=== PATIENT | male | born 1985 | race Caucasian/White ===

== ENCOUNTER 2017-09-13 00:51 | Emergency (ER) | payer OTHER ==
[~2017-09-13] VITALS: Ht 172.7 cm; Wt 72.6 kg
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
[2017-09-13] MEDS ORDERED: LORAZEPAM INJ 2 MG/ML VIAL ONE (01:06)
[2017-09-13] MEDS ORDERED: HALOPERIDOL LACTATE INJ 5 MG/ML VIAL ONE (01:06)
--- NOTE | 2017-09-13 01:15 | NUR ---
[facility] AT BEDSIDE FOR REPORT
[2017-09-13] MEDS ORDERED: HALOPERIDOL LACTATE INJ 5 MG/ML VIAL IV ONE (01:30)
[2017-09-13] MEDS ORDERED: LORAZEPAM INJ 2 MG/ML VIAL IV ONE (01:30)
--- NOTE | 2017-09-13 01:35 | NUR ---
LAB AT BEDSIDE FOR BLOOD DRAW
[2017-09-13 01:49] LABS: BASOPHILS % (AUTO) 0.3 % (0.0-2.0); EOSINOPHILS # (AUTO) 0.3 /CMM (0.0-0.7); EOSINOPHILS % (AUTO) 4.6 % (0.0-6.0); HEMATOCRIT 42 % (39-51); HEMOGLOBIN 14.6 g/dL (13.5-17.5); LYMPHOCYTES # (AUTO) 1.5 /CMM (0.8-4.8); LYMPHOCYTES % (AUTO) 19.9 % (20.0-44.0); MEAN CORPUSCULAR HEMOGLOBIN 30 PG (26.0-33.0); MEAN CORPUSCULAR HGB CONC 35 g/dl (31.0-36.0); MEAN CORPUSCULAR VOLUME 85 fL (80-96); MONOCYTES # (AUTO) 0.5 /CMM (0.1-1.30); MONOCYTES % (AUTO) 6.4 % (2.0-12.0); NEUTROPHILS # (AUTO) 5.3 /CMM (1.8-8.9); NEUTROPHILS % (AUTO) 68.8 % (43.0-81.0); PLATELET COUNT (AUTO) 213 /CMM (150-450); RDW COEFFICIENT OF VARIATION 13.2 (11.5-15.0); RED BLOOD CELL COUNT(AUTO) 4.91 MIL/uL (4.5-6.0); WHITE BLOOD COUNT (AUTO) 7.7 K/uL (4.3-11.0)
--- NOTE | 2017-09-13 01:51 | NUR ---
Patient is resting comfortably in bed with eyes closed. Easily aroused. VSS
[2017-09-13 01:59] LABS: CALCIUM, SERUM 8.7 mg/dL (8.5-10.1); CARBON DIOXIDE 26 mmol/L (21-32); CHLORIDE 104 mmol/L (98-107); CREATININE 0.8 mg/dL (0.6-1.3); GLUCOSE 98 mg/dL (74-106); POTASSIUM 3.2 mmol/L (3.5-5.1); SODIUM SERUM 142 mmol/L (136-145); UREA NITROGEN, BLOOD 7 mg/dL (7-18)
[2017-09-13 02:06] LABS: ALANINE AMINOTRANSFERASE 40 U/L (12-78); ALBUMIN 4.2 g/dL (3.4-5.0); ALKALINE PHOSPHATASE 57 U/L (46-116); ASPARTATE AMINOTRANSFERASE 23 U/L (15-37); BILIRUBIN,DIRECT 0.1 mg/dL (0.0-0.2); BILIRUBIN,TOTAL 0.5 mg/dL (0.2-1.0); TOTAL PROTEIN, SERUM 7.6 g/dL (6.4-8.2)
[2017-09-13 02:07] LABS: ACETAMINOPHEN 0 ug/ml (10-30); ALCOHOL, BLOOD < 3 mg/dL (0-0); SALICYLATE 0.9 mg/dL (2.8-20.0)
[2017-09-13 02:13] LABS: THYROID STIMULATING HORMONE 3.324 uIU/mL (0.358-3.74)
--- NOTE | 2017-09-13 03:38 | NUR ---
VERBAL ORDERS PER DR. HERNANDEZ TO GIVE PT IV BOLUS 1 L NS NOW ONE TIME.
[2017-09-13] MEDS ORDERED: IV NS 0.9% 1,000 ML BAG IV ONE (04:00)
--- NOTE | 2017-09-13 06:57 | NUR ---
REPORT GIVEN TO HAMLET BADILLO FOR JAYY
[2017-09-13 09:08] VITALS: BP 109/71
== END 2017-09-13 09:09 | disposition home or self-care (01) ==
LOC: ER 00:53
DX: F15.129 Other stimulant abuse with intoxication, unspecified (principal); F19.10 Other psychoactive substance abuse, uncomplicated; F41.9 Anxiety disorder, unspecified; F20.9 Schizophrenia, unspecified
CPT/HCPCS: 36415; 80048-TC; 80076-TC; 82550-TC; 84443-TC; 85025-TC; A4606; G0480; J1630; J2060; J7030; Z7610

== ENCOUNTER 2017-09-22 23:35 | Emergency (ER) | payer OTHER ==
[~2017-09-22] VITALS: Ht 167.6 cm; Wt 81.6 kg
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
[2017-09-23] MEDS ORDERED: LORAZEPAM INJ 2 MG/ML VIAL ONE (01:09)
--- NOTE | 2017-09-23 01:10 | NUR ---
ART LES BEDSIDE FOR PSYCH EVAL.
--- NOTE | 2017-09-23 01:10 | NUR ---
PER MD MICHAEL, VERBAL ORDER GIVEN TO GIVE PT 2MG/ML OF ATIVAN IV.
--- NOTE | 2017-09-23 01:17 | NUR ---
[facility] [place] [phone]
[2017-09-23 01:20] LABS: BASOPHILS % (AUTO) 0.1 % (0.0-2.0); EOSINOPHILS # (AUTO) 0.2 /CMM (0.0-0.7); EOSINOPHILS % (AUTO) 0.8 % (0.0-6.0); HEMATOCRIT 47 % (39-51); HEMOGLOBIN 16.3 g/dL (13.5-17.5); LYMPHOCYTES # (AUTO) 1.5 /CMM (0.8-4.8); LYMPHOCYTES % (AUTO) 7.3 % (20.0-44.0); MEAN CORPUSCULAR HEMOGLOBIN 29 PG (26.0-33.0); MEAN CORPUSCULAR HGB CONC 35 g/dl (31.0-36.0); MEAN CORPUSCULAR VOLUME 85 fL (80-96); MONOCYTES # (AUTO) 0.9 /CMM (0.1-1.30); MONOCYTES % (AUTO) 4.4 % (2.0-12.0); NEUTROPHILS # (AUTO) 17.7 /CMM (1.8-8.9); NEUTROPHILS % (AUTO) 87.4 % (43.0-81.0); PLATELET COUNT (AUTO) 258 /CMM (150-450); RDW COEFFICIENT OF VARIATION 13.2 (11.5-15.0); RED BLOOD CELL COUNT(AUTO) 5.59 MIL/uL (4.5-6.0); WHITE BLOOD COUNT (AUTO) 20.3 K/uL (4.3-11.0)
[2017-09-23 01:36] LABS: CALCIUM, SERUM 10.6 mg/dL (8.5-10.1); CARBON DIOXIDE 27 mmol/L (21-32); CHLORIDE 102 mmol/L (98-107); CREATININE 1.1 mg/dL (0.6-1.3); GLUCOSE 80 mg/dL (74-106); POTASSIUM 3.6 mmol/L (3.5-5.1); SODIUM SERUM 142 mmol/L (136-145); UREA NITROGEN, BLOOD 13 mg/dL (7-18)
[2017-09-23 01:38] LABS: ACETAMINOPHEN 0 ug/ml (10-30); ALANINE AMINOTRANSFERASE 36 U/L (12-78); ALBUMIN 5.1 g/dL (3.4-5.0); ALCOHOL, BLOOD < 3 mg/dL (0-0); ALKALINE PHOSPHATASE 61 U/L (46-116); ASPARTATE AMINOTRANSFERASE 29 U/L (15-37); BILIRUBIN,DIRECT 0.2 mg/dL (0.0-0.2); BILIRUBIN,TOTAL 0.7 mg/dL (0.2-1.0); SALICYLATE 1.1 mg/dL (2.8-20.0); TOTAL PROTEIN, SERUM 9.2 g/dL (6.4-8.2)
[2017-09-23] MEDS ORDERED: LORAZEPAM INJ 2 MG/ML VIAL IV ONE (02:00)
--- NOTE | 2017-09-23 02:15 | NUR ---
Patient is resting comfortably in bed with eyes closed. Easily aroused. VSS
--- NOTE | 2017-09-23 03:00 | NUR ---
Patient is resting comfortably in bed with eyes closed. Easily aroused. VSS
--- NOTE | 2017-09-23 04:35 | NUR ---
Patient is resting comfortably in bed with eyes closed. Easily aroused. VSS
[2017-09-23 04:42] LABS: APPEARANCE,URINE CLEAR (CLEAR); BILIRUBIN,URINE NEGATIVE (NEGATIVE); BLOOD, URINE NEGATIVE Ery/uL (NEGATIVE); COLOR,URINE DARK YELLOW (YELLOW); KETONES,URINE 1+ (NEGATIVE); LEUKOCYTE ESTERASE ,URINE NEGATIVE (NEGATIVE); NITRITE, URINE NEGATIVE (NEGATIVE); PH,URINE 7.5 (5.0-8.0); PROTEIN,URINE TRACE mg/dl (NEGATIVE); UGLUCOSE NEGATIVE (NEGATIVE); UROBILINOGEN,URINE 0.2 EU/dL (0.2)
[2017-09-23 04:46] LABS: BACTERIA,URINE Few /HPF (None Seen); MUCUS,URINE Few /LPF (None Seen); RBC,URINE 0-2 /HPF (0-2); SQUAMOUS EPITHELIAL CELL,UR Few /HPF (None Seen); WBC,URINE 0-2 /HPF (0-3)
--- NOTE | 2017-09-23 06:05 | NUR ---
Patient is resting comfortably in bed with eyes closed. Easily aroused. VSS
--- NOTE | 2017-09-23 06:08 | NUR ---
CALLED PT'S MOTHER TO COME TEACHER DRAMA HER SON. MOTHER STATED HER ETA WOULD BE 20MINS
[2017-09-23 07:23] VITALS: BP 112/68
== END 2017-09-23 07:23 | disposition home or self-care (01) ==
LOC: ER 23:39
DX: T43.621A Poisoning by amphetamines, accidental (unintentional), initial encounter (principal); R41.0 Disorientation, unspecified; D72.829 Elevated white blood cell count, unspecified; F20.9 Schizophrenia, unspecified; F15.10 Other stimulant abuse, uncomplicated; F12.10 Cannabis abuse, uncomplicated; Y92.89 Other specified places as the place of occurrence of the external cause
CPT/HCPCS: 36415; 80048-TC; 80076-TC; 80305; 81000-TC; 85025-TC; A4606; G0480; J2060; Z7610

== ENCOUNTER 2020-10-21 05:02 | Emergency (ER) | payer MEDICAID, OTHER ==
[~2020-10-21] VITALS: Ht 167.6 cm; Wt 77.1 kg
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
[2020-10-21] MEDS ORDERED: TDAP [DIPH/PERTUSSIS/TET] 0.5 ML VIAL IM ONE ×2 (05:11→05:30)
--- NOTE | 2020-10-21 05:17 | NUR ---
PACKING AND FINAL ASSEMBLY SUPERVISOR AT BEDSIDE FOR BLOOD DRAW
--- NOTE | 2020-10-21 05:20 | NUR ---
COVID SWAB COLLECTED AND SENT TO LAB
[2020-10-21 05:46] LABS: BASOPHILS # (AUTO) 0.1 /CMM (0.0-0.2); BASOPHILS % (AUTO) 0.7 % (0.0-2.0); EOSINOPHILS % (AUTO) 4.1 % (0.0-6.0); HEMATOCRIT 43 % (39-51); HEMOGLOBIN 14.5 g/dL (13.5-17.5); LYMPHOCYTES # (AUTO) 1.3 /CMM (0.8-4.8); LYMPHOCYTES % (AUTO) 14.5 % (20.0-44.0); MEAN CORPUSCULAR HGB CONC 34 g/dl (31.0-36.0); MEAN CORPUSCULAR VOLUME 85 fL (80-96); MONOCYTES # (AUTO) 0.5 /CMM (0.1-1.30); MONOCYTES % (AUTO) 5.3 % (2.0-12.0); NEUTROPHILS # (AUTO) 6.6 /CMM (1.8-8.9); NEUTROPHILS % (AUTO) 75.4 % (43.0-81.0); PLATELET COUNT (AUTO) 274 /CMM (150-450); RED BLOOD CELL COUNT(AUTO) 5.06 MIL/uL (4.5-6.0); WHITE BLOOD COUNT (AUTO) 8.8 K/uL (4.3-11.0)
[2020-10-21 05:50] LABS: BILIRUBIN,URINE NEGATIVE (NEGATIVE); COLOR,URINE YELLOW (YELLOW); LEUKOCYTE ESTERASE ,URINE NEGATIVE (NEGATIVE); NITRITE, URINE NEGATIVE (NEGATIVE); PH,URINE 6.5 (5.0-8.0); PROTEIN,URINE NEGATIVE (NEGATIVE); UGLUCOSE NEGATIVE (NEGATIVE); UROBILINOGEN,URINE 0.2 EU/dL (0.2)
[2020-10-21 05:56] LABS: CALCIUM, SERUM 9.6 mg/dL (8.5-10.1); CARBON DIOXIDE 28 mmol/L (21-32); CHLORIDE 101 mmol/L (98-107); GLUCOSE 102 mg/dL (74-106); POTASSIUM 3.8 mmol/L (3.5-5.1); SODIUM SERUM 139 mmol/L (136-145); UREA NITROGEN, BLOOD 17 mg/dL (7-18)
[2020-10-21 06:02] LABS: ALANINE AMINOTRANSFERASE 48 U/L (12-78); ALBUMIN 4.2 g/dL (3.4-5.0); ALCOHOL, BLOOD 27 mg/dL (0-0); ALKALINE PHOSPHATASE 61 U/L (46-116); ASPARTATE AMINOTRANSFERASE 36 U/L (15-37); BILIRUBIN,DIRECT 0.1 mg/dL (0.0-0.2); BILIRUBIN,TOTAL 0.4 mg/dL (0.2-1.0); TOTAL PROTEIN, SERUM 7.8 g/dL (6.4-8.2)
[2020-10-21 06:02] LABS: BACTERIA,URINE None seen /HPF (None Seen); SQUAMOUS EPITHELIAL CELL,UR Few /HPF (None Seen); WBC,URINE 0-2 /HPF (0-3)
[2020-10-21 06:24] LABS: ACETAMINOPHEN < 2 ug/ml (10-30)
--- NOTE | 2020-10-21 06:30 | NUR ---
PT CONSTANTLY ATTEMPTING TO GET OUT OF BED AND WANDER AROUND ER. SITTER AT BEDSIDE. MD AWARE
[2020-10-21] MEDS ORDERED: OLANZAPINE 10 MG VIAL IM ONE ×2 (06:32→07:00)
--- NOTE | 2020-10-21 07:30 | NUR ---
REPORT GIVEN TO HAMLET MAURICIO FOR JAYY
--- NOTE | 2020-10-21 14:06 | NUR ---
patient in bed asleep, arousable by tactile stimuli. hooked to monitor. will continue to monitor accordingly. sitter at bedside
--- NOTE | 2020-10-21 17:51 | NUR ---
[facility] [phone] WILL COME TO SEE PT.
--- NOTE | 2020-10-21 19:47 | NUR ---
PT RESTING COMFORTABLY IN BED, EASILY AROUSABLE. VITAL SIGNS STABLE. SITTER STILL AT BEDSIDE. WILL CONTINUE TO MONITOR
--- NOTE | 2020-10-21 20:00 | NUR ---
EM[facility] CORNEJO AT BEDSIDE FOR EVALAUTION
--- NOTE | 2020-10-21 21:33 | NUR ---
PER ONION TIER CHANTAL, SHE WILL BE PUTTING PATIENT ON A 5150 HOLD AND SEND ALL CLINICALS TO [facility] AND HOPE THAT THEY WILL HAVE PLACEMENT FOR HIM. CHANTAL SAID SHE WILL KEEP F/U WITH [facility] FOR ANY UPDATES
[2020-10-22] MEDS ORDERED: ACETAMINOPHEN 160 MG/5 ML GT ONE (07:00)
--- NOTE | 2020-10-22 07:25 | NUR ---
REPORT GIVEN TO AM SHIFT RN FOR JAYY
--- NOTE | 2020-10-22 09:51 | NUR ---
CALLED [facility], SPOKE TO A [employer]AVY EQUIPMENT SALES ASSOCIATE STATING THAT THEY ONLY TAKE COVID PCR TEST.
--- NOTE | 2020-10-22 10:09 | NUR ---
CHANTAL WHITTAKER MADE AWARE OF [facility] WANTING A COVID PCR TEST INSTEAD OF A COVID ANTIGEN TEST.
--- NOTE | 2020-10-22 10:10 | NUR ---
PT AWAKE, VERBALY RESPONSIVE AND COOPERATIVE TO STAFF. STABLE VITALS. WILL CONTINUE TO MONITOR.
--- NOTE | 2020-10-22 12:20 | NUR ---
RAGHU RN AT BEDSIDE FOR PSYCH EVAL.
--- NOTE | 2020-10-22 12:55 | NUR ---
PT IS MEDICALLY AND PSYCH CLEARED. DISHARGED HOME IN STABLE CONDITION.
[2020-10-22 12:56] VITALS: BP 122/76
== END 2020-10-22 12:57 | disposition home or self-care (01) ==
LOC: ER 05:04
DX: R45.851 Suicidal ideations (principal); S61.512A Laceration without foreign body of left wrist, initial encounter; X78.1XXA Intentional self-harm by knife, initial encounter; Y92.89 Other specified places as the place of occurrence of the external cause; F20.9 Schizophrenia, unspecified; F15.10 Other stimulant abuse, uncomplicated; Z20.822 Contact with and (suspected) exposure to COVID-19
CPT/HCPCS: 36415; 80048; 80076; 80299; 80307; 80320; 81001; 85025; 87426; 90471; 90715; 96372; 99285; A6403; C9803; J3490; G0480

== ENCOUNTER 2020-11-17 23:39 | Emergency (ER) | payer MEDICAID ==
[~2020-11-17] VITALS: Ht 167.6 cm; Wt 77.1 kg
[2020-11-17 23:39] VITALS: BP 120/67
== END 2020-11-18 01:25 | disposition home or self-care (01) ==
LOC: ER 23:42
DX: R46.1 Bizarre personal appearance (principal)

== ENCOUNTER 2023-04-14 17:31 | Emergency (ER) | payer MEDICAID, OTHER ==
[~2023-04-14] VITALS: Ht 170.2 cm; Wt 68.0 kg
[2023-04-14 17:51] VITALS: BP 126/67; TEMP 98.4; O2SAT 98
[2023-04-14] MEDS ORDERED: TDAP [DIPH/PERTUSSIS/TET] 0.5 ML VIAL IM ONE ×2 (18:14→18:30)
== END 2023-04-14 18:41 | disposition home or self-care (01) ==
LOC: ER 17:31
DX: S91.119A Laceration without foreign body of unspecified toe without damage to nail, initial encounter (principal); F20.9 Schizophrenia, unspecified; W26.8XXA Contact with other sharp object(s), not elsewhere classified, initial encounter; Y93.89 Activity, other specified; Y92.89 Other specified places as the place of occurrence of the external cause; Y99.8 Other external cause status
CPT/HCPCS: 90715

== ENCOUNTER 2023-04-18 07:30 | Emergency (ER) | payer OTHER ==
[~2023-04-18] VITALS: Ht 170.2 cm; Wt 68.0 kg
[2023-04-18 07:41] VITALS: BP 138/84; TEMP 98
[2023-04-18] MEDS ORDERED: SULF1TAB48 PO (08:40)
[2023-04-18] MEDS ORDERED: CEPH500C2 PO (08:40)
[2023-04-18] MEDS ORDERED: IBUP-1955 PO (08:40)
[2023-04-18 08:52] VITALS: O2SAT 100
== END 2023-04-18 08:54 | disposition home or self-care (01) ==
LOC: ER 07:30
DX: L03.116 Cellulitis of left lower limb (principal); F20.9 Schizophrenia, unspecified

== ENCOUNTER 2023-04-24 04:16 | Emergency (ER) | payer OTHER ==
[~2023-04-24] VITALS: Ht 170.2 cm; Wt 72.6 kg
[~2023-04-24 04:16] MED LIST: CEPH500C2 PO; IBUP-1955 PO; SULF1TAB48 PO
[2023-04-24] MEDS ORDERED: NALOXONE PREFILLED SYRINGE 2 MG/2 ML SYRINGE ONE ×2 (04:35→04:44)
[2023-04-24] MEDS ORDERED: ONDANSETRON HCL/PF 4 MG/2 ML VIAL ONE (04:39)
[2023-04-24] MEDS ORDERED: NALOXONE PREFILLED SYRINGE 2 MG/2 ML SYRINGE IV ONE ×2 (05:00)
[2023-04-24] MEDS ORDERED: ONDANSETRON HCL/PF 4 MG/2 ML VIAL IV ONE (05:00)
[2023-04-24 05:19] LABS: BASOPHILS % (AUTO) 0.4 % (0.0-2.0); EOSINOPHILS # (AUTO) 0.3 K/uL (0.0-0.7); EOSINOPHILS % (AUTO) 2.6 % (0.0-6.0); HEMATOCRIT 46 % (39-51); HEMOGLOBIN 15.3 g/dL (13.5-17.5); LYMPHOCYTES # (AUTO) 1.4 K/uL (0.8-4.8); LYMPHOCYTES % (AUTO) 13.1 % (20.0-44.0); MEAN CORPUSCULAR HEMOGLOBIN 29 PG (26.0-33.0); MEAN CORPUSCULAR HGB CONC 33 g/dl (31.0-36.0); MEAN CORPUSCULAR VOLUME 86 fL (80-96); MONOCYTES # (AUTO) 0.5 K/uL (0.1-1.30); NEUTROPHILS # (AUTO) 8.1 K/uL (1.8-8.9); NEUTROPHILS % (AUTO) 78.9 % (43.0-81.0); PLATELET COUNT (AUTO) 285 K/uL (150-450); RED BLOOD CELL COUNT(AUTO) 5.34 MIL/uL (4.5-6.0); RED CELL DISTRIBUTION WIDTH 13.7 % (11.5-15.0); WHITE BLOOD COUNT (AUTO) 10.3 K/uL (4.3-11.0)
[2023-04-24 05:33] LABS: ALANINE AMINOTRANSFERASE 184 U/L (12-78); ALBUMIN 4.4 g/dL (3.4-5.0); ALCOHOL, BLOOD < 3 mg/dL (0-10); ALKALINE PHOSPHATASE 68 U/L (46-116); ASPARTATE AMINOTRANSFERASE 68 U/L (15-37); BILIRUBIN,DIRECT 0.2 mg/dL (0.0-0.2); BILIRUBIN,TOTAL 0.5 mg/dL (0.2-1.0); CALCIUM, SERUM 9.7 mg/dL (8.5-10.1); CARBON DIOXIDE 23 mmol/L (21-32); CHLORIDE 98 mmol/L (98-107); GLUCOSE 105 mg/dL (74-106); POTASSIUM 3.2 mmol/L (3.5-5.1); SODIUM SERUM 136 mmol/L (136-145); TOTAL PROTEIN, SERUM 8.6 g/dL (6.4-8.2); UREA NITROGEN, BLOOD 13 mg/dL (7-18)
[2023-04-24 05:36] LABS: ACETAMINOPHEN <10 ug/ml (10-30); SALICYLATE < 2.3 mg/dL (2.8-20.0)
[2023-04-24 05:54] LABS: APPEARANCE,URINE CLOUDY (CLEAR); BILIRUBIN,URINE NEGATIVE (NEGATIVE); BLOOD, URINE NEGATIVE Ery/uL (NEGATIVE); COLOR,URINE YELLOW (YELLOW); KETONES,URINE 1+ mg/dL (NEGATIVE); LEUKOCYTE ESTERASE ,URINE NEGATIVE (NEGATIVE); NITRITE, URINE NEGATIVE (NEGATIVE); PROTEIN,URINE NEGATIVE (NEGATIVE); UGLUCOSE NEGATIVE (NEGATIVE); UROBILINOGEN,URINE 0.2 EU/dL (0.2)
[2023-04-24 06:09] LABS: BARBITURATE, URINE NEGATIVE (NEGATIVE); BENZODIAZEPINE, URINE NEGATIVE (NEGATIVE); CANNABINOID, URINE NEGATIVE (NEGATIVE); COCCAINE, URINE NEGATIVE (NEGATIVE); PHENCYCLIDINE SCREEN,URINE NEGATIVE (NEGATIVE)
[2023-04-24 06:10] LABS: AMPHETAMINE, URINE POSITIVE (NEGATIVE); OPIATE, URINE POSITIVE (NEGATIVE)
[2023-04-24] MEDS ORDERED: NALO1DIS2 IM (13:50)
[2023-04-24 14:17] VITALS: BP 120/60; TEMP 98; O2SAT 99
== END 2023-04-24 14:17 | disposition home or self-care (01) ==
LOC: ER 04:18
DX: T40.1X1A Poisoning by heroin, accidental (unintentional), initial encounter (principal); F19.10 Other psychoactive substance abuse, uncomplicated; F20.9 Schizophrenia, unspecified; Y92.89 Other specified places as the place of occurrence of the external cause
CPT/HCPCS: 99284; 96374; 96375; 93005; 85025; 80048; 80076; 81003; 36415; 80143; 80320; 80307; J2405; J2310 ×2; G0480

== ENCOUNTER 2023-05-05 13:07 | Emergency (ER) | payer OTHER ==
[~2023-05-05] VITALS: Ht 167.6 cm; Wt 73.0 kg
[~2023-05-05 13:07] MED LIST changes: +NALO1DIS2 IM
[2023-05-05 13:23] VITALS: BP 141/89; TEMP 98.7; O2SAT 100
== END 2023-05-05 13:25 ==
LOC: ER 13:12
DX: F19.10 Other psychoactive substance abuse, uncomplicated (principal); F20.9 Schizophrenia, unspecified